=== PATIENT | female | born 1955 | race Caucasian/White ===

== ENCOUNTER → 2022-06-01 | Day surgery (SDC) | payer MEDICARE, OTHER ==
[~2022-06-01] MED LIST: CITALOPRAM HBR20 MG PO; FENTANYL CITRATE/PF 100MCG/2 ML INJ ONE; MIDAZOLAM HCL 2 MG/2 ML VIAL ONE; OMEPRAZOLE40 MG PO; OR PHACO EYE KIT ONE; PREOP PHACO EYE KIT ONE
[2022-06-01 16:40] VITALS: BP 131/78
== END | disposition home or self-care (01) ==
LOC: OR 12:27
PROVIDERS: ATTEND Ophthalmology
DX: H25.11 Age-related nuclear cataract, right eye (principal); K21.9 Gastro-esophageal reflux disease without esophagitis; F41.9 Anxiety disorder, unspecified; F32.A Depression, unspecified; Z01.812 Encounter for preprocedural laboratory examination; Z20.822 Contact with and (suspected) exposure to COVID-19; Z79.899 Other long term (current) drug therapy
CPT/HCPCS: 0223U; 36415; 66984; J2250; J3010; V2632

== ENCOUNTER → 2022-06-22 | Day surgery (SDC) | payer MEDICARE ==
[~2022-06-22] MED LIST changes: +CYCLOPENTOLATE HCL 1% OPTH SOLN 2ML BTL ONE
[2022-06-22 13:05] VITALS: BP 109/71
== END | disposition home or self-care (01) ==
LOC: OR 10:36
PROVIDERS: ATTEND Ophthalmology
DX: H25.12 Age-related nuclear cataract, left eye (principal); K21.9 Gastro-esophageal reflux disease without esophagitis
CPT/HCPCS: 66984; J2250; J3010